=== PATIENT | male | born 1980 | race American Indian/Alaskan Native ===

== ENCOUNTER 2017-07-01 07:47 | Emergency (ER) | payer MEDICAID ==
[2017-07-01 08:52] LABS: Basophils % (Auto) 0.7 % (0.0-1.8); Eosinophils % (Auto) 2.4 % (0.0-4.3); Hematocrit 43.5 % (35.5-45.6); Hemoglobin 14.3 gm/dl (11.8-15.2); Mean Corpuscular HGB Conc 33 % (32-34); Mean Corpuscular Hemoglobin 32 pg (28-32); Mean Corpuscular Volume 96 fl (84-94); Platelet Count 150 K/mm3 (140-440); Red Blood Count 4.51 M/mm3 (3.65-5.03); Red Cell Distribution Width 12.9 % (13.2-15.2); White Blood Count 8.5 K/mm3 (4.5-11.0)
[2017-07-01 09:11] LABS: Anion Gap 18 mmol/L; BUN/Creatinine Ratio 11; Blood Urea Nitrogen 10 mg/dL (9-20); Calcium 8.8 mg/dL (8.4-10.2); Carbon Dioxide 21 mmol/L (22-30); Chloride 107.6 mmol/L (98-107); Glucose 113 mg/dL (75-100); Potassium 4.2 mmol/L (3.6-5.0); Sodium 142 mmol/L (137-145)
[2017-07-01] MEDS ORDERED: SUBLIMAZE IV ONE ×2 (10:02→12:41)
[2017-07-01] MEDS ORDERED: TYLENOL PO ONE (10:02)
[2017-07-01] MEDS ORDERED: NACL 0.9% 500 ML 500 ML IV ONE (10:04)
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
--- NOTE | 2017-07-01 11:02 | Cat Scan Report ---
CT HEAD WITHOUT CONTRAST INDICATION: Seizure. Possible head trauma. COMPARISON: None similar at this institution. FINDINGS: Noncontrast head CT demonstrates normal ventricles and sulci without acute or recent infarct, hemorrhage, mass effect or midline shift. No abnormal extra-axial fluid collections. Posterior fossa structures and basilar cisterns appear within normal limits. Symmetric eye globes. Approximately 1 cm right maxillary sinus mucosal thickening or retention cyst posteriorly while a similar, 4 mm left maxillary sinus focus anteriorly partially imaged as on axial image 2, series 3. Mild right ethmoid air cell opacification anteriorly. Clear remainder imaged paranasal sinuses and mastoid air cells. Leftward nasal septal deviation. Intact calvarium. Normal overlying scalp soft tissues. Few small radiopaque dental material incidentally noted. CONCLUSION: No acute intracranial CT abnormality with few incidental findings, as described. Thank you for the opportunity to participate in this patient's care.
[2017-07-01 11:39] LABS: Urine Drugs of Abuse Note Disclamer
--- NOTE | 2017-07-01 11:44 | Cat Scan Report ---
CT ABDOMEN AND PELVIS WITHOUT CONTRAST INDICATION: Back pain preceded seizure. COMPARISON: None similar. FINDINGS: Noncontrast abdomen and pelvis CT performed. LUNG BASES: Slight nonspecific distal esophageal wall prominence/thickening, not excluded for gastroesophageal reflux and/or hiatal hernia, amongst others. ABDOMEN: Please note that sensitivity to detect small visceral lesions is limited due to the absence of intravenous or oral contrast. Left hepatic lobe extends well into the left upper quadrant. Left kidney surgically absent with bowel occupying the fossa. Presumed compensatory hypertrophy of the right kidney with an approximately 6 mm indeterminate hypodensity inferiorly, axial image 176, series 2 and minimal nonspecific perinephric stranding as on axial image 181. No hydronephrosis or radiopaque calculi. Spleen, gallbladder, pancreas, right adrenal, abdominal aorta and the IVC within normal limits. An approximately 8 mm left adrenal hypodense adenoma or myelolipoma, axial image 120. No ascites or significant adenopathy. Nonopacified GI tract evaluation limited, though grossly nonobstructive. Appendectomy changes. Mild stool throughout colon. PELVIS: Seminal vesicle calcifications and few small pelvic phleboliths. Grossly unremarkable non-opacified urinary bladder, prostate and rectosigmoid. No free fluid or significant adenopathy. Approximately 2.4 cm fat-containing right inguinal hernia. Mild lower thoracic spine degenerative spurring. CONCLUSION: 1. 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 However, subtle pyelonephritis difficult to entirely exclude, that if suspected, may also be correlated for clinically and with laboratory values. 2. No other acute significant CT abnormality on this unenhanced exam with various other incidental findings, as described. Thank you for the opportunity to participate in this patient's care.
[2017-07-01 12:11] LABS: Bacteria,Urine 1+ /HPF (Negative); Bilirubin,Urine NEG (Negative); Blood,Urine NEG (Negative); Ketones,Urine NEG (Negative); Leukocyte Esterase,Urine NEG (Negative); Mucus,Urine FEW /HPF; Nitrite,Urine NEG (Negative); Protein,Urine <15 mg/dL mg/dL (Negative)
[2017-07-01 12:12] VITALS: BP 124/86
[2017-07-01 12:12] LABS: Urobilinogen,Urine < 2.0 mg/dL (<2.0)
== END 2017-07-01 13:00 | disposition home or self-care (01) ==
LOC: ED 07:47
DX: G40.909 Epilepsy, unspecified, not intractable, without status epilepticus (principal); S39.92XA Unspecified injury of lower back, initial encounter; X58.XXXA Exposure to other specified factors, initial encounter; Y93.89 Activity, other specified; Y92.89 Other specified places as the place of occurrence of the external cause; Y99.8 Other external cause status
CPT/HCPCS: 36415; 70450; 74176; 80048; 80164; 80307; 81001; 82550; 85025; 93005; 93010; 96374; 96376; 99285; J3010; J7040

== ENCOUNTER 2017-09-26 05:11 | Emergency (ER) | payer MEDICAID ==
[2017-09-26 05:20] VITALS: BP 114/69
[2017-09-26 06:20] LABS: Hematocrit 42.4 % (35.5-45.6); Hemoglobin 13.7 gm/dl (11.8-15.2); Mean Corpuscular HGB Conc 32 % (32-34); Mean Corpuscular Hemoglobin 31 pg (28-32); Mean Corpuscular Volume 97 fl (84-94); Red Cell Distribution Width 12.6 % (13.2-15.2)
[2017-09-26 06:36] LABS: BUN/Creatinine Ratio 14; Blood Urea Nitrogen 13 mg/dL (9-20); Calcium 8.8 mg/dL (8.4-10.2); Hemolysis Index 137
[2017-09-26 07:11] LABS: Mean Platelet Volume 11.4 fl (6-12); Platelet Count 70 K/mm3 (140-440)
--- NOTE | 2017-09-26 11:55 | Emergency Department Report ---
ED Seizure HPI - General Chief Complaint: Neuro Symptoms/Deficit Stated Complaint: SEIZURE Time Seen by Provider: 09/26/17 09:17 Source: EMS Mode of arrival: Ambulatory Limitations: No Limitations - History of Present Illness Initial Comments: 37-year-old male with a past medical history of seizures and asthma presents to the hospital complaints of feeling like he is going to have a seizure. Patient has been feeling "jittery" since 4 AM. Since being in the ER for several hours he has still not had a seizures. Patient has been compliant with his Depakote 500 mg 2 tablets in the a.m. and 3 tablets daily at bedtime. Last dose was this morning. Patient denies any pain. He states he recently was treated with Tamiflu prescribed by his PMD for influenza symptoms. - Related Data Previous Rx's Medication Instructions Recorded Last Taken Type Lacosamide [Vimpat] 150 mg PO BID #60 tablet 09/26/17 Unknown Rx Allergies Allergy/AdvReac Type Severity Reaction Status Date / Time No Known Allergies Allergy Unverified 07/01/17 08:16 ED Review of Systems ROS: Stated complaint: SEIZURE Other details as noted in HPI Comment: All other systems reviewed and negative Other: Constitutional: No fevers chills Eyes: No eye pain visual changes ENT: No ear pain or throat pain Neck: Denies pain Respiratory: Denies cough wheezing shortness of breath Cardiovascular: Denies chest pain, palpitations, syncope GI: Denies abdominal pain, nausea, vomiting, diarrhea : Denies dysuria Musculoskeletal: Denies back pain, joint swelling Skin: Denies rash, lesions, erythema Neurologic: Denies headache, numbness, weakness Psychiatric: Denies suicidal ideation, hallucinations ED Past Medical Hx - Past Medical History Hx Seizures: Yes Hx Asthma: Yes - Surgical History Hx Appendectomy: Yes Additional Surgical History: Abdominal Sx - Social History Smoking Status: Current Every Day Smoker Substance Use Type: None - Medications Home Medications: Home Medications Medication Instructions Recorded Confirmed Last Taken Type Lacosamide [Vimpat] 150 mg PO BID #60 tablet 09/26/17 Unknown Rx ED Physical Exam - General Limitations: No Limitations - Other Other exam information: General: No limitations, patient is alert in no acute distress Head exam: Atraumatic, normocephalic Eyes exam: Normal appearance, pupils equal reactive to light, extraocular movements intact ENT: Moist mucous membrane, normal oropharynx Neck exam: Normal inspection, full range of motion, no meningismus nontender Respiratory exam: Clear to auscultation bilateral, no wheezes, rales, crackles Cardiovascular: Normal rate and rhythm, normal heart sounds Abdomen: Soft, nondistended, and nontender, with normal bowel sounds, no rebound, or guarding Extremity: Full range of motion normal inspection no deformity Back: Normal Inspection, full range of motion, no tenderness Neurologic: Alert, oriented x3, cranial nerves intact, no motor or sensory deficit, [id number] function intact Psychiatric: normal affect, normal mood Skin: Warm, dry, intact ED Course Vital Signs 09/26/17 09/26/17 09/26/17 05:14 05:20 08:16 Temperature 98.1 F Pulse Rate 80 78 Respiratory 20 16 Rate Blood Pressure 114/69 114/69 Blood Pressure 114/69 [Right] O2 Sat by Pulse 94 95 98 Oximetry - Reevaluation(s) Reevaluation #1: 09/26/17 12:00 No seizure activity during ED stay - Consultations Consultation #1: 09/26/17 12:05 Case is discussed with Dr Bryson. Last office visit in April. He has attempted to change patient's medicine to Keppra in the past but patient was resistant. Keppra apparently can also cause thrombocytopenia and therefore he advised to try to change patient to Vimpat if he is agreeable and follow-up. ED Medical Decision Making - Lab Data Result diagrams: 09/26/17 05:43 09/26/17 05:43 Lab Results 09/26/17 09/26/17 09/26/17 Range/Units 05:43 05:43 10:35 WBC 6.5 (4.5-11.0) K/mm3 RBC 4.40 (3.65-5.03) M/mm3 Hgb 13.7 (11.8-15.2) gm/dl Hct 42.4 (35.5-45.6) % MCV 97 H (84-94) fl MCH 31 (28-32) pg MCHC 32 (32-34) % RDW 12.6 L (13.2-15.2) % Plt Count 70 L (140-440) K/mm3 Sodium 138 (137-145) mmol/L Potassium 4.8 (3.6-5.0) mmol/L Chloride 103.1 (98-107) mmol/L Carbon Dioxide 22 (22-30) mmol/L Anion Gap 18 mmol/L BUN 13 (9-20) mg/dL Creatinine 0.9 (0.8-1.5) mg/dL Estimated GFR > 60 ml/min BUN/Creatinine Ratio 14 % Glucose 101 H (75-100) mg/dL Calcium 8.8 (8.4-10.2) mg/dL Valproic Acid 89.9 (50-100) ug/mL - Medical Decision Making During several hour ED stay patient has not exhibited any tremors, neurologic symptoms, or seizures. Patient is compliant with his Depakote has a therapeutic level. Elicited the finding of thrombocytopenia which is new compared to previous last. Patient denies any spontaneous bleeding symptoms and has a normal H&H. Depakote can cause thrombocytopenia and advised neurologist Vimpat since it does not cause thrombocytopenia as a side effect. Patient denies alcohol abuse Outpatient follow-up PMD, neurologist, and wool mixer will be advised Patient is not sure if he is willing to try the Vimpat. He will be given a one- month supply. Heesd informed that if he is willing to try Vimpat to discontinue the Depakote. He was warned that Depakote can be the cause of thrombocytopenia and may worsen. He is informed to monitor for spontaneous bleeding and to follow-up with his PMD this week and a wool mixer as soon as possible for further workup and evaluation. - Differential Diagnosis electrolytes abnormality, subtherapeutic Depakote, seizure disorder Critical Care Time: No Critical care attestation.: If time is entered above; I have spent that time in minutes in the direct care of this critically ill patient, excluding procedure time. ED Disposition Clinical Impression: Seizure disorder, Thrombocytopenia Disposition: DC-01 TO HOME OR SELFCARE Is pt being admited?: No Does the pt Need Aspirin: No Condition: Stable Instructions: Epilepsy (ED), Thrombocytopenia (ED) Additional Instructions: Your platelet counts are low. Platelets are responsible for your blood clotting. Please avoid the use of aspirin/goodie powders until your platelet counts improve. Depakote can cause low platelet levels. For this reason it has been recommended by the ER physician and your neurologist to discontinue the Depakote and to start Vimpat. You have been given a one-month supply prescription for Vimpat. If you decide to try the Vimpat you must discontinued Depakote. Please know if you continue the Depakote then your platelet count may continue to decrease. Please monitor for signs of bleeding as indicated by her discharge instructions. Follow with the primary care doctor this week as well as a wool mixer as soon as possible. Take the copies of labs provided see a doctor for follow-up. Prescriptions: Lacosamide [Vimpat] 150 mg PO BID #60 tablet Referrals: TAISHA LANDA MD [Staff Physician] - 3-5 Days (Hematology) REYNA BRYSON MD [Staff Physician] - 3-5 Days (Neurologist) FAM MOSCOSO MD [Other] - 3-5 Days (Primary care doctor) Time of Disposition: 12:17
== END 2017-09-26 13:03 | disposition home or self-care (01) ==
LOC: ED 05:11
DX: G40.909 Epilepsy, unspecified, not intractable, without status epilepticus (principal); D69.6 Thrombocytopenia, unspecified; J45.909 Unspecified asthma, uncomplicated; F17.200 Nicotine dependence, unspecified, uncomplicated
CPT/HCPCS: 36415; 80048; 80164; 85027

== ENCOUNTER → 2017-12-02 | Emergency (ER) | payer MEDICAID ==
[2017-12-02 06:01] LABS: Basophils # (Auto) 0.1 K/mm3 (0.0-0.1); Basophils % (Auto) 1.2 % (0.0-1.8); Eosinophils # (Auto) 0.3 K/mm3 (0.0-0.4); Hematocrit 41.4 % (35.5-45.6); Lymphocytes # (Auto) 2.8 K/mm3 (1.2-5.4); Lymphocytes % (Auto) 41.4 % (13.4-35.0); Mean Corpuscular HGB Conc 34 % (32-34); Mean Corpuscular Hemoglobin 32 pg (28-32); Mean Corpuscular Volume 94 fl (84-94); Monocytes # (Auto) 0.6 K/mm3 (0.0-0.8); Monocytes % (Auto) 9.4 % (0.0-7.3); Platelet Count 138 K/mm3 (140-440); Red Cell Distribution Width 12.6 % (13.2-15.2)
[2017-12-02 06:21] LABS: BUN/Creatinine Ratio 23; Blood Urea Nitrogen 16 mg/dL (9-20); Calcium 9.3 mg/dL (8.4-10.2); Hemolysis Index 4
[2017-12-02 07:51] VITALS: BP 124/84
== END ==
LOC: ED 05:08
DX: R56.9 Unspecified convulsions (principal); Z53.21 Procedure and treatment not carried out due to patient leaving prior to being seen by health care provider
CPT/HCPCS: 36415; 80048; 80164; 85025

== ENCOUNTER 2019-09-23 22:18 | Emergency (ER) | payer MEDICAID ==
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
[2019-09-23] MEDS ORDERED: levETIRAcetam 1000 MG/NS 0.75% 1,000 MG/100 ML BAG IV ONE (22:32)
[2019-09-23 22:35] VITALS: BP 122/80
[2019-09-23 23:04] LABS: Hematocrit 41.3 % (35.5-45.6); Hemoglobin 13.5 gm/dl (11.8-15.2); Mean Corpuscular HGB Conc 33 % (32-34); Mean Corpuscular Volume 94 fl (84-94); Red Blood Count 4.38 M/mm3 (3.65-5.03); Red Cell Distribution Width 12.7 % (13.2-15.2)
[2019-09-23 23:22] LABS: Alanine Aminotransferase 20 units/L (7-56); Albumin 3.8 g/dL (3.9-5); BUN/Creatinine Ratio 10; Blood Urea Nitrogen 10 mg/dL (9-20); Calcium 9.1 mg/dL (8.4-10.2); Hemolysis Index 22; Platelet Count 144 K/mm3 (140-440)
== END 2019-09-24 01:06 | disposition home or self-care (01) ==
LOC: ED 22:18
DX: R25.1 Tremor, unspecified (principal); R56.9 Unspecified convulsions; J45.909 Unspecified asthma, uncomplicated; F17.200 Nicotine dependence, unspecified, uncomplicated; Z79.899 Other long term (current) drug therapy; Z88.6 Allergy status to analgesic agent; Z90.49 Acquired absence of other specified parts of digestive tract; Z98.890 Other specified postprocedural states
CPT/HCPCS: 36415; 80053; 85027; J1953

== ENCOUNTER 2019-11-07 21:12 | Emergency (ER) | payer MEDICAID ==
[2019-11-07 21:40] LABS: Hematocrit 41.7 % (35.5-45.6); Hemoglobin 14.3 gm/dl (11.8-15.2); Mean Corpuscular HGB Conc 34 % (32-34); Mean Corpuscular Volume 93 fl (84-94); Platelet Count 153 K/mm3 (140-440); Red Blood Count 4.48 M/mm3 (3.65-5.03); Red Cell Distribution Width 12.6 % (13.2-15.2)
[2019-11-07 21:56] LABS: BUN/Creatinine Ratio 10; Blood Urea Nitrogen 10 mg/dL (9-20); Calcium 9.4 mg/dL (8.4-10.2); Hemolysis Index 16
[2019-11-07] MEDS ORDERED: DIVALPROEX ER 500 MG TAB PO ONE (22:04)
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
[2019-11-07 22:31] VITALS: BP 107/78
== END 2019-11-07 22:31 | disposition home or self-care (01) ==
LOC: ED 21:12
DX: G40.89 Other seizures (principal); J45.909 Unspecified asthma, uncomplicated; F17.200 Nicotine dependence, unspecified, uncomplicated; Z90.49 Acquired absence of other specified parts of digestive tract; Z88.6 Allergy status to analgesic agent
CPT/HCPCS: 36415; 80048; 80164; 80320; 82962; 85027; G0480

== ENCOUNTER 2019-12-11 01:43 | Emergency (ER) | payer MEDICAID ==
[2019-12-11 02:29] LABS: Hematocrit 41.2 % (35.5-45.6); Hemoglobin 13.8 gm/dl (11.8-15.2); Mean Corpuscular HGB Conc 34 % (32-34); Mean Corpuscular Volume 94 fl (84-94); Platelet Count 158 K/mm3 (140-440); Red Blood Count 4.37 M/mm3 (3.65-5.03); Red Cell Distribution Width 12.9 % (13.2-15.2)
[2019-12-11 02:54] LABS: BUN/Creatinine Ratio 9; Blood Urea Nitrogen 10 mg/dL (9-20); Calcium 9.2 mg/dL (8.4-10.2); Hemolysis Index 7
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
[2019-12-11 03:12] VITALS: BP 125/76
== END 2019-12-11 03:45 | disposition home or self-care (01) ==
LOC: ED 01:43
DX: G40.409 Other generalized epilepsy and epileptic syndromes, not intractable, without status epilepticus (principal); J45.909 Unspecified asthma, uncomplicated; F17.200 Nicotine dependence, unspecified, uncomplicated; Z90.49 Acquired absence of other specified parts of digestive tract; Z79.899 Other long term (current) drug therapy; Z51.81 Encounter for therapeutic drug level monitoring; Z88.8 Allergy status to other drugs, medicaments and biological substances
CPT/HCPCS: 36415; 80048; 80164; 83735; 85027

== ENCOUNTER 2020-06-12 07:51 | Emergency (ER) | payer MEDICAID ==
[2020-06-12] MEDS ORDERED: IBUPROFEN 600 MG TAB PO ONE (08:41)
[2020-06-12 10:29] LABS: Hemolysis Index 338
[2020-06-12 10:32] LABS: Blood Urea Nitrogen TNR mg/dL (9-20)
[2020-06-12 10:33] LABS: BUN/Creatinine Ratio TNR; Calcium TNR mg/dL (8.4-10.2)
[2020-06-12 11:13] LABS: Hematocrit TNR % (35.5-45.6); Hemoglobin TNR gm/dl (11.8-15.2); Mean Corpuscular HGB Conc TNR % (32-34); Mean Corpuscular Volume TNR fl (84-94); Platelet Count TNR K/mm3 (140-440); Red Blood Count TNR M/mm3 (3.65-5.03); Red Cell Distribution Width TNR % (13.2-15.2)
[2020-06-12 11:15] LABS: Basophils % (Auto) TNR % (0.0-1.8); Eosinophils % (Auto) TNR % (0.0-4.3); Lymphocytes # (Auto) TNR K/mm3 (1.2-5.4); Lymphocytes % (Auto) TNR % (13.4-35.0); Monocytes % (Auto) TNR % (0.0-7.3)
[2020-06-12 11:16] LABS: Basophils # (Auto) TNR K/mm3 (0.0-0.1); Eosinophils # (Auto) TNR K/mm3 (0.0-0.4); Monocytes # (Auto) TNR K/mm3 (0.0-0.8)
[2020-06-12 11:36] LABS: Amphetamine Screen,Urine Negative; Benzodiazepines Screen,Urine Negative; Cannabinoid Screen,Urine Negative; Cocaine Screen,Urine Negative; Methadone Screen,Urine Negative; Opiate Screen,Urine Negative
[2020-06-12 11:37] LABS: BUN/Creatinine Ratio 12; Blood Urea Nitrogen 11 mg/dL (9-20); Calcium 9.3 mg/dL (8.4-10.2); Hemolysis Index 3
[2020-06-12 11:54] LABS: Hematocrit 40.6 % (35.5-45.6); Hemoglobin 13.6 gm/dl (11.8-15.2); Mean Corpuscular HGB Conc 34 % (32-34); Mean Corpuscular Volume 96 fl (84-94); Red Blood Count 4.24 M/mm3 (3.65-5.03); Red Cell Distribution Width 12.7 % (13.2-15.2)
[2020-06-12 12:31] LABS: Platelet Count 138 K/mm3 (140-440)
[2020-06-12 16:08] VITALS: BP 106/57
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
== END 2020-06-12 16:00 | disposition home or self-care (01) ==
LOC: ED 07:51
DX: G40.909 Epilepsy, unspecified, not intractable, without status epilepticus (principal); J45.909 Unspecified asthma, uncomplicated; Z79.899 Other long term (current) drug therapy; F17.200 Nicotine dependence, unspecified, uncomplicated; Z88.8 Allergy status to other drugs, medicaments and biological substances
CPT/HCPCS: 36415; 80048; 80164; 80307; 85025; 85027

== ENCOUNTER 2020-08-12 03:22 | Emergency (ER) | payer MEDICAID ==
[2020-08-12] MEDS ORDERED: predniSONE 20 MG TAB PO ONE (03:32)
[2020-08-12] MEDS ORDERED: KETOROLAC 60 MG/2 ML INJ IM ONE (03:32)
[2020-08-12 04:14] VITALS: BP 138/85
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
== END 2020-08-12 06:00 | disposition home or self-care (01) ==
LOC: ED 03:22
DX: S16.1XXA Strain of muscle, fascia and tendon at neck level, initial encounter (principal); S39.012A Strain of muscle, fascia and tendon of lower back, initial encounter; R56.9 Unspecified convulsions; J45.909 Unspecified asthma, uncomplicated; F17.200 Nicotine dependence, unspecified, uncomplicated; Z90.49 Acquired absence of other specified parts of digestive tract; Z98.890 Other specified postprocedural states; Z79.899 Other long term (current) drug therapy; Z88.8 Allergy status to other drugs, medicaments and biological substances; X50.9XXA Other and unspecified overexertion or strenuous movements or postures, initial encounter; Y93.89 Activity, other specified; Y92.89 Other specified places as the place of occurrence of the external cause; Y99.8 Other external cause status
CPT/HCPCS: 96372; 99282; J1885; J7512

== ENCOUNTER 2021-02-21 23:18 | Emergency (ER) | payer MEDICAID ==
[2021-02-22 00:02] VITALS: BP 126/82
[2021-02-22] MEDS ORDERED: KETOROLAC 60 MG/2 ML INJ IM ONE (09:45)
[2021-02-22] MEDS ORDERED: dexAMETHasone 4 MG/ML VIAL IM STA (09:45)
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
== END 2021-02-22 11:05 | disposition home or self-care (01) ==
LOC: ED 23:18
DX: M54.42 Lumbago with sciatica, left side (principal); G40.909 Epilepsy, unspecified, not intractable, without status epilepticus; J45.909 Unspecified asthma, uncomplicated; Z90.89 Acquired absence of other organs; Z88.5 Allergy status to narcotic agent
CPT/HCPCS: 96372; 99282; J1100; J1885

== ENCOUNTER 2021-09-06 00:49 | Emergency (ER) | payer MEDICAID ==
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
[2021-09-06 04:08] VITALS: BP 124/77
== END 2021-09-06 04:06 | disposition home or self-care (01) ==
LOC: ED 00:49
DX: S39.012A Strain of muscle, fascia and tendon of lower back, initial encounter (principal); R56.9 Unspecified convulsions; J45.909 Unspecified asthma, uncomplicated; Z91.09 Other allergy status, other than to drugs and biological substances; Z79.899 Other long term (current) drug therapy; X50.0XXA Overexertion from strenuous movement or load, initial encounter; Y93.89 Activity, other specified; Y92.89 Other specified places as the place of occurrence of the external cause; Y99.8 Other external cause status
CPT/HCPCS: 99282

== ENCOUNTER 2021-10-02 23:43 | Emergency (ER) | payer MEDICAID | END 2021-10-03 | disposition left against medical advice (07) | LOC: ED 23:43 | DX: M54.9 Dorsalgia, unspecified (principal); Z53.21 Procedure and treatment not carried out due to patient leaving prior to being seen by health care provider ==